=== PATIENT | male | born 1970 | race Caucasian/White ===

== ENCOUNTER 2016-03-05 06:04 | Emergency (ER) | payer SELFPAY ==
[~2016-03-05] VITALS: Ht 177.8 cm; Wt 72.0 kg
[2016-03-05 06:06] VITALS: BP 130/83; PULSE 71; RESP 18; TEMP 98.1; O2SAT 97
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
[2016-03-05] MEDS ORDERED: ONDANSETRON ODT 4 MG TAB PO ONE (06:45)
[2016-03-05] MEDS ORDERED: MORPHINE SULFATE 8 MG/ML INJ IM ONE (06:45)
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
--- NOTE | 2016-03-05 08:22 | PD ---
Physical Exam Time Seen by Provider: 07:10 Narrative I assumed care of this patient at change of shift. Report taken from Rogelio Warner PA-C. See his note for initial assessment and evaluation of the patient. Data Data Last Documented VS Vital Signs Date Time Temp Pulse Resp B/P Pulse Ox O2 Delivery O2 Flow Rate FiO2 03/05/16 06:06 98.1 71 18 130/83 97 Room Air Orders Foot, Complete ([id number]) (03/05/16 06:20) Ice/Cold Pack (03/05/16 06:20) Morphine Inj (Morphine Inj) (03/05/16 06:45) Ondansetron Odt (Zofran Odt) (03/05/16 06:45) Ct Foot W/O Contrast (03/05/16 ) Splint Or Brace Apply/Monitor (03/05/16 08:39) Post Op Boot (Shoe) (03/05/16 ) Mandatory Outpatient Referral (03/05/16 08:39) [facility] Supervised Visit with RUTHIE: No Narrative Course I evaluated the patient and assumed care of the patient at change of shift. Report taken from Rogelio Casiano PA-C. See his note for initial assessment and evaluation. Left lower extremity is supple and non-tense with 2+ pedal pulses and sensory intact without erythema or edema; the dorsal aspect of the foot is edematous and with ecchymosis; toes are pink and warm. The patient is resting comfortably in bed and was previously administered morphine and Zofran. 0820: Left lower extremity CT confirms a number of fractures including a markedly comminuted fracture of the first metatarsal base but also small fractures of the second, third and fourth metatarsal bases. Only the first metatarsal articulating surface is significantly distracted by 8 mm and there is marked comminution involving the fracture inferiorly. I do not see any definite dislocation. Call placed to podiatry. 0829: Spoke with Dr. Gómez, bus or truck garage mechanic and he is going to review the patient's x-ray and CT scan and call back. 0842: I spoke with Dr. Gómez, bus or truck garage mechanic and he recommended to place the patient in a cam boot walker and have him follow-up in the office within one week. Mandatory outpatient referral ordered. Cam boot ordered. Crutches ordered for support. Percocet prescribed for home. Instructed patient to follow up with Dr. Gómez and he verbalizes understanding and agreement. Patient is medically cleared and stable for discharge. Discussed reasons to return to the emergency department. Instructed patient to follow up with primary care provider. Patient agrees with treatment plan. The patients vital signs are stable and the patient is stable for outpatient follow-up and treatment. Patient discharged home, stable and in no acute distress. Diagnosis Primary Impression: Foot fracture, left Qualified Code: S92.902A - Foot fracture, left, closed, initial encounter Referrals: Tyrone Gómez DPM Primary Care Physician Patient Instructions: Crutch Instructions (ED), Foot Fracture in Adults (ED), General Instructions Departure Forms: Tests/Procedures, Work Release Special Instructions: may work to own ability, but cannot bare weight on left leg until follow-up with podiatry for further instruction Additional Instruction: Percocet as directed and as needed for pain and inflammation Rest, ice, compress, and elevate extremity to decrease pain and inflammation Splint for support; do not remove splint until he follow-up with bus or truck garage mechanic Crutches for support; do not bear weight on her affected leg Avoid aggravating activity; increase activity as tolerated Follow-up with primary care provider Follow-up with Dr. Gómez, podiatry; his information is in her discharge instructions; call his office to make an appointment for follow-up within the next week Return to the emergency department immediately with worsening symptoms Med/Other Pt SpecificInfo: Prescription(s) given Scripts Oxycodone-Acetaminophen (Percocet)5-325 mg Tab1-2 Tab PO Q6H PRN (PAIN) #20 TAB Ref 0 Prov:Umesh Crisostomo MD 03/05/16 Disposition: 01 DISCHARGE HOME Condition: Stable Wanda Wagner Mar 05, 2016 08:22
[2016-03-05] MEDS ORDERED: PERC5TAB12 PO (08:46)
[2016-03-09] MEDS ORDERED: ACET500T3 PO (10:17)
== END 2016-03-05 10:15 | disposition home or self-care (01) ==
LOC: NEPB 06:04
DX: S92.312A Displaced fracture of first metatarsal bone, left foot, initial encounter for closed fracture (principal); S92.322A Displaced fracture of second metatarsal bone, left foot, initial encounter for closed fracture; S92.332A Displaced fracture of third metatarsal bone, left foot, initial encounter for closed fracture; S92.342A Displaced fracture of fourth metatarsal bone, left foot, initial encounter for closed fracture; Z87.39 Personal history of other diseases of the musculoskeletal system and connective tissue; Z72.0 Tobacco use; W23.1XXA Caught, crushed, jammed, or pinched between stationary objects, initial encounter
CPT/HCPCS: 73630; 73700; 99284; L2114